=== PATIENT | male | born 2000 | race Two or more races ===

== ENCOUNTER 2022-05-09 17:37 | Emergency (ER) | payer MEDICAID ==
[~2022-05-09] VITALS: Ht 162.6 cm; Wt 73.8 kg
[2022-05-09 17:53] VITALS: BP 128/62
[2022-05-09] MEDS ORDERED: IBUP800T27 PO (19:50)
== END 2022-05-09 21:00 | disposition home or self-care (01) ==
LOC: ER 17:37
DX: S42.021A Displaced fracture of shaft of right clavicle, initial encounter for closed fracture (principal); S20.211A Contusion of right front wall of thorax, initial encounter; S40.211A Abrasion of right shoulder, initial encounter; V86.56XA Driver of dirt bike or motor/cross bike injured in nontraffic accident, initial encounter; Y93.89 Activity, other specified; Y92.89 Other specified places as the place of occurrence of the external cause; Y99.8 Other external cause status
CPT/HCPCS: 70450; 71101; 73030